=== PATIENT | male | born 1985 | race Caucasian/White ===

== ENCOUNTER 2018-08-12 16:15 | Emergency (ER) | payer SELFPAY ==
[~2018-08-12] VITALS: Ht 172.7 cm; Wt 59.8 kg
[2018-08-12] MEDS ORDERED: ONDANSETRON ODT 4 MG ONE (16:56)
[2018-08-12] MEDS ORDERED: HYDROmorphone 1 MG/ML, 1ML VIAL ONE ×2 (16:58→17:52)
[2018-08-12] MEDS ORDERED: HYDROmorphone 1 MG/ML, 1ML INJ IM ONE ×2 (17:00→18:00)
[2018-08-12] MEDS ORDERED: ONDANSETRON ODT 4 MG PO ONE (17:00)
--- NOTE | 2018-08-12 17:05 | NUR ---
pt medicated per emar, tolerated well. bp and spo2 monitors in place. radiology reviewed by santana vazquez
[2018-08-12] MEDS ORDERED: LIDOCAINE-MPF 1%, 5ML ONE (17:08)
[2018-08-12] MEDS ORDERED: LIDOCAINE 1%, 10ML INFIL ONE (17:30)
--- NOTE | 2018-08-12 17:58 | NUR ---
Pt had initial improvement of pain with dilaudid, however with nerve block placement pain increased. verbal order received for second dose dilaudid 1 mg im.
--- NOTE | 2018-08-12 19:32 | NUR ---
pt d/c with d/c summary and scripts. all questions answered. controlled substances sheet signed and placed with pt chart. pt denies any other needs pertaining to this visit, and ambulates to registration desk with steady gait for d/c home.
[2018-08-12 19:33] VITALS: BP 109/71
== END 2018-08-12 19:35 | disposition home or self-care (01) ==
LOC: ED 19:05
DX: S62.356A Nondisplaced fracture of shaft of fifth metacarpal bone, right hand, initial encounter for closed fracture (principal); F17.200 Nicotine dependence, unspecified, uncomplicated; X58.XXXA Exposure to other specified factors, initial encounter; Y93.89 Activity, other specified; Y92.009 Unspecified place in unspecified non-institutional (private) residence as the place of occurrence of the external cause; Y99.8 Other external cause status
CPT/HCPCS: 26605; 73130; 96372; 99284; J1170; J3490; Q0162